=== PATIENT | female | born 1995 | race Caucasian/White ===

== ENCOUNTER 2021-08-02 10:13 | Outpatient (CLI) | payer OTHER ==
[~2021-08-02] VITALS: Ht 160 cm; Wt 78.8 kg
[2021-08-02 10:36] VITALS: BP 122/67
[2021-08-02] MEDS ORDERED: FERR325T3 PO (11:09)
[2021-08-02] MEDS ORDERED: HOME MED LIST COMPLETE! XX SCH (11:10)
[2021-08-02 12:09] VITALS: BP 113/57
== END 2021-08-02 12:10 | disposition home or self-care (01) ==
LOC: M LDO 10:13
PROVIDERS: ATTEND Obstetrics & Gynecology
DX: O36.8130 Decreased fetal movements, third trimester, not applicable or unspecified (principal); Z3A.28 28 weeks gestation of pregnancy
CPT/HCPCS: 59025; G0378; G0463

== ENCOUNTER 2021-10-17 20:15 | Inpatient (IN) | payer OTHER ==
[2021-10-17] VITALS (10 sets, daily range): BP systolic 116–179; BP diastolic 62–85
[~2021-10-17] VITALS: Ht 160 cm; Wt 81.8 kg
[~2021-10-17 20:15] MED LIST: FERR325T3 PO
[2021-10-17] MEDS ORDERED: HOME MED LIST COMPLETE! XX SCH (20:40)
[2021-10-17] MEDS ORDERED: LACTATED RINGER'S 1000 ML IV STA (21:59)
[2021-10-17] MEDS ORDERED: TRANEXAMIC ACID INJection 1,000 MG in NS 100 ML IV PRN (22:00)
[2021-10-17] MEDS ORDERED: METHYLERGONOVINE MALEATE 0.2 MG/ML VIAL (J2210) IM PRN (22:00)
[2021-10-17] MEDS ORDERED: LIDOCAINE 1% MDV 20ML VIAL INFIL PRN (22:00)
[2021-10-17] MEDS ORDERED: CARBOPROST TROMETHAMINE 250 MCG/ML AMP IM PRN (22:00)
[2021-10-17] MEDS ORDERED: OXYTOCIN DRIP 30 UNITS in IV 1 EA IV PRN ×4 (22:00)
[2021-10-17 22:35] LABS: HEMATOCRIT 28.5 % (36.0-47.0); HEMOGLOBIN 9.2 g/dl (12.0-15.5); MEAN CORPUSCULAR HEMOGLOBIN 26.7 pg (27.0-33.0); MEAN CORPUSCULAR HGB CONC 32.3 g/dl (32.0-36.5); MEAN CORPUSCULAR VOLUME 82.8 fl (80.0-96.0); PLATELET COUNT, AUTOMATED 211 10^3/uL (150-450); RED BLOOD COUNT 3.44 10^6/uL (4.00-5.40); WHITE BLOOD COUNT 14.5 10^3/uL (4.0-10.0)
[2021-10-17] MEDS ORDERED: FENTANYL 2MCG/ML ROPIVACAINE 0.2% IN 0.9% NACL 100ML IVBAG As Ordered ONE (23:10)
[2021-10-17] MEDS ORDERED: NALOXONE INJ 0.4MG/1ML VIAL (J2310 PER 1MG) IV PRN (23:30)
[2021-10-17] MEDS ORDERED: LACTATED RINGER'S 1000 ML IV PRN (23:30)
[2021-10-17] MEDS ORDERED: EPIDURAL/PCA KEYS XX PRN (23:30)
[2021-10-17] MEDS ORDERED: REFRIGERATOR IV KEYS XX PRN (23:30)
[2021-10-17] MEDS ORDERED: diphenhydrAMINE 50MG/ML VIAL (J1200) IV PRN (23:30)
[2021-10-17] MEDS ORDERED: ONDANSETRON 4MG/2ML VIAL IV PRN (23:30)
[2021-10-17] MEDS ORDERED: FENTANYL/ROPIVACAINE/NACL BAG 100 ML EPIDURAL SCH (23:30)
[2021-10-17] MEDS ORDERED: EPIDURAL COMMENT XX SCH (23:30)
[2021-10-17] MEDS ORDERED: ePHEDrine SULFATE 25 MG/5 ML(5MG/ML) SYRINGE IV PRN (23:30)
[2021-10-17] MEDS: LR 1,000 ML IV SCH (23:31)
[2021-10-18] VITALS (25 sets, daily range): BP systolic 104–169; BP diastolic 55–88
[2021-10-18] MEDS: LR 1,000 ML IV SCH (05:42)
[2021-10-18] MEDS ORDERED: DIBUCAINE 1% OINTMENT 30GM TOP PRN (08:15)
[2021-10-18] MEDS ORDERED: ACETAMINOPHEN TAB 650MG DOSE (2X325MG) PO PRN (08:15)
[2021-10-18] MEDS ORDERED: IBUPROFEN 800 MG TAB PO PRN (08:15)
[2021-10-18] MEDS ORDERED: DOCUSATE SODIUM 100MG CAPSULE PO PRN (08:15)
[2021-10-18] MEDS ORDERED: ACETAMINOPHEN 500 MG TAB PO PRN (08:15)
[2021-10-18] MEDS ORDERED: METHYLERGONOVINE MALEATE 0.2 MG TAB PO PRN (08:15)
[2021-10-18] MEDS: FERROUS SULFATE 325MG TAB PO SCH (10:30)
[2021-10-18] MEDS: PRENATAL VITAMINS CHEWABLE TABLET PO SCH (10:30)
[2021-10-18] MEDS: IBUPROFEN 600MG TAB PO PRN ×2 (12:52→20:55)
[2021-10-19] MEDS: IBUPROFEN 600MG TAB PO PRN ×2 (04:43→21:28)
[2021-10-19 06:00] VITALS: BP 123/80
[2021-10-19 06:56] LABS: HEMATOCRIT 24.2 % (36.0-47.0); HEMOGLOBIN 7.7 g/dl (12.0-15.5); MEAN CORPUSCULAR HEMOGLOBIN 26.6 pg (27.0-33.0); MEAN CORPUSCULAR HGB CONC 31.8 g/dl (32.0-36.5); MEAN CORPUSCULAR VOLUME 83.7 fl (80.0-96.0); PLATELET COUNT, AUTOMATED 193 10^3/uL (150-450); RED BLOOD COUNT 2.89 10^6/uL (4.00-5.40); WHITE BLOOD COUNT 17.9 10^3/uL (4.0-10.0)
[2021-10-19] MEDS: FERROUS SULFATE 325MG TAB PO SCH (07:37)
[2021-10-19] MEDS: PRENATAL VITAMINS CHEWABLE TABLET PO SCH (07:37)
[2021-10-19 08:30] VITALS: BP 123/80
[2021-10-19 17:30] VITALS: BP 122/61
[2021-10-20 05:55] VITALS: BP 111/62
[2021-10-20] MEDS: FERROUS SULFATE 325MG TAB PO SCH (07:38)
[2021-10-20] MEDS: PRENATAL VITAMINS CHEWABLE TABLET PO SCH (09:00)
== END 2021-10-20 10:40 | disposition home or self-care (01) | DRG 807 ==
LOC: M LDO 20:15 → M LDI 21:59 → M OBS 10-18 10:05
PROVIDERS: ADMIT Advanced Practice Midwife; ATTEND Advanced Practice Midwife
PROC: 10E0XZZ Delivery of Products of Conception, External Approach (ICD-10-PCS; principal; 2021-10-18)
PROC: 10907ZC Drainage of Amniotic Fluid, Therapeutic from Products of Conception, Via Natural or Artificial Opening (ICD-10-PCS; 2021-10-18)
PROC: 0HQ9XZZ Repair Perineum Skin, External Approach (ICD-10-PCS; 2021-10-18)
DX: O70.0 First degree perineal laceration during delivery (principal); Z37.0 Single live birth; Z3A.39 39 weeks gestation of pregnancy